=== PATIENT | female | born 1965 | race Two or more races ===

== ENCOUNTER 2021-11-17 10:16 | Outpatient (AMBR) | payer MEDICAID, SELFPAY ==
--- NOTE | 2021-10-23 13:30 | PT.OIERPT ---
PT OP Initial Eval Patient Information Visit Reasons: post op right shoulder Medical Diagnosis: M75.12 Treatment Dx #1: Right Shoulder Pain Treatment Dx #2: Right Shoulder Weakness Start of Care: 10/23/21 Date of Onset: 09/15/21 Initial Assessment Subjective Pt is a 56 y/o female s/p right shoulder rotator cuff repair 09/15/21 after she hurt her shoulder while swimming. Pt's average shoulder pain is 4-10/10 depended upon the activity. Pt has limitation with lifting, self care, work duties, reaching behind the back, overhead motions, and performing recreational activities. Objective Right Shoulder PROM: all motions are WNL Right Shoulder AROM Flexion: 160 deg Abduction: 160 deg External Rotation: 90 deg Internal Rotation: 70 deg Right Shoulder MMTs: grossly 3/5 Right Scapula MMTs: grossly 3/5 HBB: Thumb at T8 Assessment Pt demonstrate right shoulder weakness and pain s/p shoulder surgery leading to decline function. Pt will benefit from physical therapy to increase ROM, strength, and work on stability Short Term and Detention Goals 1) Increase right shoulder AROM WNL in 12 wks to be able to perform overhead activities 2) Increase right shoulder MMTs grossly to 4-/5 in 12 wks to be able to perform work duties 3) Decrease shoulder pain to 3/10 in 12 wks to be able to sleep more than 6 hrs 4) Increase right scapula MMTs grossly to 3+/5 in 12 wks to be able to perform self care activities 5) Indep with HEP Treatment Plan 1) Manual Therapy 2) Therapeutic Activities 3) Therapeutic Exercises 4) Modalities (ice, heat, estim) Frequency and Duration 2 x wk for 12 wks Certification Dates: 10/23/21 to 01/21/22 Office Procedures PT Treatments PT Date of Service: 10/23/21 OP PT Eval Mod Complex 30 minutes: Yes
--- NOTE | 2021-10-26 08:44 | PT.ODAYNRPT ---
PT Outpatient Daily Note Date of Service: 10/26/21 OP Daily Note Visit Reasons: post op right shoulder Outpatient Physical Therapy Treatment Date: 10/26/21 Subjective: Pt mention that her shoulder is moving much better. Pt's pain and shoulder popping is her concern lately. Objective: Please see flow chart for list of ther ex performed Assessment: educated Pt regarding her pain which is normal as part of the healing process. Pt demonstrate good AAROM in all plane Plan: Continue with PT Length of Time (minutes) of Treatment: 30 Minutes Office Procedures PT Treatments PT Date of Service: 10/23/21 OP PT Eval Mod Complex 30 minutes: Yes PT Treatments PT Date of Service: 10/26/21 Therapeutic Exercise 30 minutes: Yes
--- NOTE | 2021-11-02 13:30 | PT.ODAYNRPT ---
PT Outpatient Daily Note Date of Service: 11/02/21 OP Daily Note Visit Reasons: post op right shoulder Outpatient Physical Therapy Treatment Date: 11/02/21 Subjective: Pt's shoulder hurting more due to the cold weather. Pt stated that she still does her HEP daily. Objective: Please see flow chart for list of ther ex performed Assessment: tolerate exercises with minimal pain; post help decrease shoulder pain. Pt continues to improve with shoulder AAROM in all plane Plan: Continue with PT Length of Time (minutes) of Treatment: 30 Minutes Office Procedures PT Treatments PT Date of Service: 10/23/21 OP PT Eval Mod Complex 30 minutes: Yes PT Treatments PT Date of Service: 10/26/21 Therapeutic Exercise 30 minutes: Yes PT Treatments PT Date of Service: 11/02/21 Therapeutic Exercise 30 minutes: Yes
--- NOTE | 2021-11-05 16:37 | PT.ODAYNRPT ---
PT Outpatient Daily Note Date of Service: 11/05/2021 OP Daily Note Visit Reasons: post op right shoulder Outpatient Physical Therapy Treatment Date: 11/05/21 Subjective: pt states her shoulder still has pain but doing ok upon visit. Objective: see flow sheet. Assessment: added body blade in which pt had difficulty keeping the momentum. after a few attempts moved onto the next exercise. she can improve on the body blade exercise with practice. pt demonstrated good ROM during the pulleys and other exercises. she needed cuing with her IR/ER. after correction of the form she felt more of the muscle fatigue. Plan: continue POC per PT. Length of Time (minutes) of Treatment: 30 Minutes Office Procedures PT Treatments PT Date of Service: 10/23/21 OP PT Eval Mod Complex 30 minutes: Yes PT Treatments PT Date of Service: 10/26/21 Therapeutic Exercise 30 minutes: Yes PT Treatments PT Date of Service: 11/02/21 Therapeutic Exercise 30 minutes: Yes PT Treatments PT Date of Service: 11/05/21 Therapeutic Exercise 30 minutes: Yes
--- NOTE | 2021-11-11 11:42 | PT.ODAYNRPT ---
PT Outpatient Daily Note Date of Service: 11/11/21 OP Daily Note Visit Reasons: post op right shoulder Outpatient Physical Therapy Treatment Date: 11/11/21 Subjective: Pt's shoulder is more sore than usual. Pt admits that she has been doing a lot more at home lately. Objective: Please see flow chart for list of ther ex performed Assessment: tolerate exercises with minimal pain Plan: Continue with PT Length of Time (minutes) of Treatment: 30 Minutes Office Procedures PT Treatments PT Date of Service: 10/23/21 OP PT Eval Mod Complex 30 minutes: Yes PT Treatments PT Date of Service: 10/26/21 Therapeutic Exercise 30 minutes: Yes PT Treatments PT Date of Service: 11/02/21 Therapeutic Exercise 30 minutes: Yes PT Treatments PT Date of Service: 11/05/21 Therapeutic Exercise 30 minutes: Yes PT Treatments PT Date of Service: 11/11/21 Therapeutic Exercise 30 minutes: Yes
--- NOTE | 2021-11-17 10:51 | PT.ODAYNRPT ---
PT Outpatient Daily Note Date of Service: 11/17/21 OP Daily Note Visit Reasons: post op right shoulder Outpatient Physical Therapy Treatment Date: 11/17/21 Subjective: Pt's shoulder feels much better. Pt has been resting more which seems to help the pain and soreness Objective: Please see flow chart for list of ther ex performed Assessment: tolerate exercises with minimal pain Plan: Continue with PT Length of Time (minutes) of Treatment: 30 Minutes Office Procedures PT Treatments PT Date of Service: 11/17/21 Therapeutic Exercise 30 minutes: Yes PT Treatments PT Date of Service: 10/23/21 OP PT Eval Mod Complex 30 minutes: Yes PT Treatments PT Date of Service: 10/26/21 Therapeutic Exercise 30 minutes: Yes PT Treatments PT Date of Service: 11/02/21 Therapeutic Exercise 30 minutes: Yes PT Treatments PT Date of Service: 11/05/21 Therapeutic Exercise 30 minutes: Yes PT Treatments PT Date of Service: 11/11/21 Therapeutic Exercise 30 minutes: Yes
== END 2021-11-20 23:59 | disposition home or self-care (01) ==
PROVIDERS: Visit Provider Orthopaedic Surgery
DX: M25.512 Pain in left shoulder (principal); R53.1 Weakness
CPT/HCPCS: 97110; 97162

== ENCOUNTER → 2025-10-21 | Outpatient (CLI) | payer MEDICAID, SELFPAY ==
--- NOTE | 2025-10-21 09:23 | XR_ITS ---
EXAMINATION: Upper GI series with KUB Fluoroscopy 17 spot fluoroscopic films of the esophagus and stomach PA chest Soft tissue lateral neck single view Date and time: 2024, 1019 hours INDICATIONS: Reflux, heartburn FINDINGS: Upright PA chest single view demonstrates normal heart size lungs are clear Soft tissue lateral neck demonstrates normal epiglottis Primary peristaltic esophageal waves noted Moderate continuous gastroesophageal reflux No stricture at the gastroesophageal junction No gastric mass deformity or ulceration Duodenal bulb expands symmetrically Duodenal sweep and ligament of Treitz region unremarkable IMPRESSION: Moderate continuous gastroesophageal reflux No stricture at the gastroesophageal junction No gastric mass deformity or ulceration Negative for duodenal ulcer disease
== END | disposition home or self-care (01) ==
LOC: SDIM 09:08
PROVIDERS: PCP Registered Nurse Community Health; Referring Provider Registered Nurse Community Health; Visit Provider Registered Nurse Community Health
DX: K21.9 Gastro-esophageal reflux disease without esophagitis (principal)
CPT/HCPCS: 74240; A4649